=== PATIENT | female | born 1985 | race Caucasian/White ===

== ENCOUNTER 2021-12-01 10:50 | Emergency (ER) | payer OTHER ==
[~2021-12-01] VITALS: Ht 162.6 cm; Wt 56.2 kg
[2021-12-01 11:11] VITALS: BP 116/83
[2021-12-01] MEDS ORDERED: HYDROmorphone 2 MG TAB PO ONE (12:05)
[2021-12-01] MEDS ORDERED: HYDROmorphone 2 MG TAB ONE (13:42)
[2021-12-01 14:45] VITALS: BP 111/77
--- NOTE | 2021-12-01 14:45 | NUR ---
NO NURSING INTERVENTIONS PROVIDED
--- NOTE | 2021-12-01 14:45 | NUR ---
Patient discharged with v/s stable. Written and verbal after care instructions given and explained. Patient alert, oriented and verbalized understanding of instructions. Ambulatory with steady gait. All questions addressed prior to discharge. ID band removed. Patient advised to follow up with PMD. Patient educated on indication of medication including possible reaction and side effects. Opportunity to ask questions provided and answered.
== END 2021-12-01 14:45 | disposition home or self-care (01) ==
LOC: MED 10:50
DX: R07.89 Other chest pain (principal); R42 Dizziness and giddiness; M79.602 Pain in left arm; Z90.49 Acquired absence of other specified parts of digestive tract; Z98.890 Other specified postprocedural states; Z90.710 Acquired absence of both cervix and uterus; Z88.0 Allergy status to penicillin; Z88.5 Allergy status to narcotic agent; Z88.8 Allergy status to other drugs, medicaments and biological substances; W19.XXXA Unspecified fall, initial encounter; Y93.89 Activity, other specified; Y92.89 Other specified places as the place of occurrence of the external cause; Y99.8 Other external cause status
CPT/HCPCS: 73030; 73080; 73502; 73562; 93005; 99284